=== PATIENT | female | born 1990 | race Caucasian/White ===

== ENCOUNTER 2019-09-19 09:52 | Inpatient (IN) | payer OTHER ==
[~2019-09-19] VITALS: Ht 162.6 cm; Wt 102.0 kg
--- NOTE | ~2019-09-19 | OR ---
[facility] [address], [place] [address] Draft DATE OF OPERATION: 09/24/2019 SURGEON: Tre El MD Patient of Dr. El. PREOPERATIVE DIAGNOSIS: Term , previous section. POSTOPERATIVE DIAGNOSIS: Term , previous section. PROCEDURE PERFORMED: Repeat low transverse segment section. Delivery of live female infant. MANAGER AUDIO: Simon carcamo DO. ANESTHESIA: Spinal. ESTIMATED BLOOD LOSS: 500 mL. COMPLICATIONS: None. DRAINS: Nolasco to bladder. FINDINGS: Live female infant, Apgars 8 and 9. Weight 8 pounds 9 ounces. Normal uterus, normal tubes and ovaries bilateral. DESCRIPTION OF PROCEDURE: The patient was brought to the operating room, placed in supine position. After adequate spinal anesthesia was obtained, was prepped and draped in usual sterile fashion. Nolasco catheter was placed in the bladder. A Pfannenstiel skin incision was made through previous surgical scar using the scalpel. Subcutaneous tissue was dissected with scalpel and Bovie. The fascia was nicked with scalpel, extended in PATIENT NAME: AAMIR LOMELI OPERATIVE REPORT DATE OF : [birth year] REPORT #: [id number] PHYSICIAN: TRE EL MD PCP: NO PRIMARY CARE PHYSICIAN REPORT IS CONFIDENTIAL AND NOT TO BE RELEASED WITHOUT AUTHORIZATION [facility] [address] [place] [id number] Draft transverse fashion using curved scissors. The underlying abdominal musculature was bluntly and sharply from the fascia above and below the incision. The abdominal musculature was bluntly along the midline. The peritoneum was opened with scissors and then incision extended manually. The Sergio self-retaining retractor was inserted into the incision and tightened in place. The lower uterine segment was identified and the lower uterine segment nicked with scalpel and extended in transverse fashion using finger dissection. Bulging bag of clear fluid came from the incision. This was opened with pickups with teeth. The was noted to be in vertex LOP presentation. The infant head was easily delivered from the incision. The rest of the was easily delivered from the incision and the cord doubly clamped and cut. The infant was passed off table in good condition to awaiting nurse. The placenta was manually removed and the uterine cavity explored with a lap pad to remove any retained membranes. An angle stitch of 0 Monocryl was placed at one end of incision and running locking stitch of 0 Monocryl was used to imbricate the 1st layer. There was small bleeding at the left angle. This was controlled with a vdvngt-ng-autbw stitch of 0 Monocryl. When good hemostasis was obtained, the entire pelvis was irrigated, suctioned, and examined, any superficial bleeding spots cauterized with the Bovie. Good hemostasis was obtained. The Sergio self-retaining retractor was removed and a sheet of ACell placed over the lower uterine segment to help with healing. The anterior wall of peritoneum was closed using a running stitch of 2-0 Vicryl suture. The abdominal musculature was reapproximated using interrupted stitches of 0 Vicryl suture. The abdominal wall was then irrigated, suctioned, and examined, any bleeding spots cauterized with the Bovie. Powdered ACell sprinkled over the abdominal musculature and then the fascia closed using two running stitches of 0 Vicryl suture meeting in the midline. The subcutaneous tissue was irrigated, suctioned, examined, any bleeding spots cauterized with the Bovie. Subcutaneous tissue was then closed using interrupted stitches of 3-0 Vicryl and skin reapproximated using skin clips. The patient tolerated the procedure well, went to recovery room in good condition. The sponge, needle, and instrument count correct at the end of the procedure. MD LOLI Garza/MODL /[id number] PATIENT NAME: AAMIR LOMELI OPERATIVE REPORT DATE OF : [birth year] REPORT #: [id number] PHYSICIAN: TRE EL MD PCP: NO PRIMARY CARE PHYSICIAN REPORT IS CONFIDENTIAL AND NOT TO BE RELEASED WITHOUT AUTHORIZATION [facility] [address] [place] [address] [place] [address] Draft Copies: ~ PATIENT NAME: AAMIR LOMELI OPERATIVE REPORT DATE OF : [birth year] REPORT #: [id number] PHYSICIAN: TRE EL MD PCP: NO PRIMARY CARE PHYSICIAN REPORT IS CONFIDENTIAL AND NOT TO BE RELEASED WITHOUT AUTHORIZATION
[~2019-09-19 09:52] MED LIST: BACTRIM DS TAB1 EACH PO; NAPROSYN500 MG PO; NEXPLANON68 MG SUB-Q
--- NOTE | 2019-09-24 13:18 | NUR ---
09/24/19 1318 [address] 1308 PATIENT ARRIVES TO [facility] 104 AWAKE. DENIES PAIN OR NAUSEA. RESP EVEN AND UNLABORED, ROOM AIR SATS >95%. MOTHER AND SO AT BEDSIDE. MOTHER HOLDING INFANT ON CHEST. 1315 PATIENT CONTINUES TO DENY PAIN OR NAUSEA. RESP EVEN AND UNLABORED, ROOM AIR SATS >95%.
--- NOTE | 2019-09-25 12:22 | PR ---
[facility] [address] [facility] [place], [place] [address] Signed PP Progress Notes Datetime Report Generated by CPN: 09/25/2019 12:22 SUBJECTIVE: [id number] Pain: Within normal limits Nausea/Vomiting: Denies Flatus: Yes Bowel Movement: No Vital Signs: [id number] Vital Signs: Reviewed; Within Normal Limits EXAM: [id number] Cardiovascular: Normal Respiratory: Normal Lochia: Normal Vulva/Perineum: Not Done CVA Tenderness: Normal Extremities: Normal Incision: Normal Progress: Normal Exam Comments: Fundus firm U -2 nontender. Incision healing well. IMPRESSION/PLAN/PROCEDURES: [id number] Impression: Normal progression Progress Notes: Pt seen and examined. Doing well. No concerns. Anticipate d/c home tomorrow. D/C cath and ambulate. Signing Physician: Sofi Crum DO Copies: ~ *Electronically Signed* 09/25/19 1222 SOFI CRUM DO PATIENT NAME: AAMIR LOMELI PROGRESS NOTE DATE OF : [birth year] PHYSICIAN: SOFI CRUM DO RPT #: [id number] REPORT IS CONFIDENTIAL AND NOT TO BE RELEASED WITHOUT AUTHORIZATION
--- NOTE | 2019-09-26 08:41 | PR ---
[facility] [address] [facility] [place], [place] [address] Signed PP Progress Notes Datetime Report Generated by CPN: 09/26/2019 08:41 SUBJECTIVE: [id number] Pain: Within normal limits Nausea/Vomiting: Denies Flatus: Yes Bowel Movement: No Vital Signs: [id number] Vital Signs: Reviewed; Within Normal Limits EXAM: [id number] Cardiovascular: Normal Respiratory: Normal Abdomen/Uterus: Normal Lochia: Normal Vulva/Perineum: Not Done CVA Tenderness: Normal Extremities: Normal Incision: Normal Progress: Normal Exam Comments: Fundus firm U-2 nontender. Incision w/ hipolito in place IMPRESSION/PLAN/PROCEDURES: [id number] Impression: Normal progression Plan: Discharge Progress Notes: Pt seen and examined. Doing well. Ambulating, voiding, and tolerating full diet. Pain and lochia minimal. w/ difficulties latching, but pumping without difficulty. Desires d/c home. Reviewed d/c instructions in detail. Pt to f/u for staple removal in office tomorrow. Signing Physician: Sofi Crum DO Copies: ~ *Electronically Signed* 09/26/19 0841 SOFI CRUM DO PATIENT NAME: AAMIR LOMELI PROGRESS NOTE DATE OF : [birth year] PHYSICIAN: SOFI CRUM DO RPT #: [id number] REPORT IS CONFIDENTIAL AND NOT TO BE RELEASED WITHOUT AUTHORIZATION
== END 2019-09-26 12:10 | disposition home or self-care (01) | DRG 788 ==
LOC: FBC 09-24 09:49
PROVIDERS: ADMIT General Practice
PROC: 10D00Z1 Extraction of Products of Conception, Low, Open Approach (ICD-10-PCS; principal; 2019-09-24 12:00)
DX: O34.211 Maternal care for low transverse scar from previous cesarean delivery (principal); N85.8 Other specified noninflammatory disorders of uterus; O24.429 Gestational diabetes mellitus in childbirth, unspecified control; Z3A.39 39 weeks gestation of pregnancy; Z37.0 Single live birth
CPT/HCPCS: 01961; 36415; 85027; A9270; J0131; J0690; J1644; J1885; J2274; J2405; J2590; J2765; J7121

== ENCOUNTER 2019-10-11 20:41 | Inpatient (IN) | payer OTHER ==
[~2019-10-11] VITALS: Ht 162.6 cm; Wt 91.2 kg
--- OUTSIDE RECORDS SUMMARY | 2019-10-11 20:44 | XMS ---
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 EDao VISIT COUNT (12 MO.) 1 ANNABEL Jett TOTAL 1 NOTE: Visits indicate total known visits. ED/UCC VISIT TRACKING (12 MO.) 10/11/2019 20:42 ANNABEL Lombardi OR TYPE: Emergency COMPLAINT: - ABD PAIN INPATIENT VISIT TRACKING (12 MO.) 09/24/2019 09:49 ANNABEL Lombardi OR TYPE: [facility] COMPLAINT: - REPEAT C SECTION DIAGNOSES: - Gestational diabetes mellitus in childbirth, unsp control - Other specified noninflammatory disorders of uterus - Other specified noninflammatory disorders of uterus - Single live - Matern care for low transverse scar from prev del - Maternal care for unsp type scar from previous del - 39 weeks gestation of [email or web address]
[2019-10-11] MEDS ORDERED: IBUPROFEN800 MG PO (23:31)
--- NOTE | 2019-10-13 11:29 | HP ---
[facility] [address] [place], [place] [address] Signed ADMISSION DATE: 10/11/2019 REASON FOR ADMISSION: Perforated appendicitis with abscess, 2-1/2 weeks. HISTORY: This 29-year-old white woman delivered by , her 2nd child 2-1/[address] El[address] She has had about eight days of increasing right pelvic pain. She was thought likely to have symptoms related to her recent . Notably, she had a hematoma of the lateral aspect of the incision on the right side, for which, wound packing was undertaken. The wound has been healing well. She had increasing pain for the past eight days or so. She was seen by Dr. El a day prior to the emergency room evaluation. A plan for a CT scan was organized for the coming week if she was not better, but she had a temperature to 101 three nights prior to admission, but pain increasing to a level of 8/10 with ambulation and on that basis, presented to the emergency room. She was thoroughly evaluated by Dr. El who noted her to have elevated white count of 13.5, and a CT scan was performed, which shows an abscess in relation to the appendix and presumably a perforated appendicitis with abscess. The CT scan that was performed does show some endometrial enhancement, some fluid within uterine cavity, grossly homogeneous. No abnormality otherwise. There is a trace subcutaneous soft tissue air in the lateral margin of the , but wound packing noted as well. The patient was admitted under my service with directions for meropenem, broad-spectrum antibiotic administration. She has had no fever or chills since admission. No nausea or vomiting. She has urinated and appears likely to be well hydrated. PAST MEDICAL HISTORY: Primarily remarkable for childbirth x2, both by . Her recent was planned. She has not smoked, does not use alcohol and takes no drugs. She has home medication of ibuprofen. Previously a control method, Nexplanon 68 mg subcutaneous daily, which has been discontinued. Her beta-hCG currently is negative. REVIEW OF SYSTEMS: She denies any shortness of breath or chest pain. She has had no leg swelling. No shortness of breath. Her pain is in the right lower abdomen. She notes her incision to be healing well. She has been using gauze packing to the lateral aspect of it. PHYSICAL EXAMINATION: Electronically Signed By: NAZANIN MCDONOUGH MD 10/13/19 1129 PATIENT NAME: AAMIR LOMELI HISTORY AND PHYSICAL DATE OF : [birth year] REPORT #: [id number] PHYSICIAN: NAZANIN MCDONOUGH MD PCP: NO PRIMARY CARE PHYSICIAN REPORT IS CONFIDENTIAL AND NOT TO BE RELEASED WITHOUT AUTHORIZATION [facility] [address] [place], [place] [address] Signed GENERAL: She is alert and oriented and nontoxic in appearance. HEENT: Mucous membranes are moist. NECK: Trachea is midline. CHEST: Clear. HEART: Regular without murmur. ABDOMEN: Obese, but soft. There is tenderness in the right lower abdomen. The mid low transverse incision is healing well. There is some gauze packing and a small defect in the lateral aspect on the right side. EXTREMITIES: Show no clubbing, cyanosis, or edema. Sequential compression device stockings are in place. LABORATORY DATA: Her CBC shows white count of 13.3, platelets 342,000, hematocrit 38. Electrolytes are normal. Creatinine 0.73. Urinalysis by clean catch was abnormal with elevated white cells, but 2nd urinalysis normal. Liver enzymes are normal. I reviewed her CT scan in detail, also the report from radiologist. ASSESSMENT: The patient has an abscess in the right lower quadrant in relation to her appendix and what appears to be a fecalith as well. She almost certainly has perforated appendicitis with abscess. Her symptoms have been about one week in duration and this is not too surprising. Discussed with her the pathophysiology of appendicitis and its relationship to perforation with abscess formation. Drainage of the abscess is certainly appropriate and if possible, appendectomy concurrently. There are occasions where due to distortion of anatomy and so forth, that only the abscess can be drained and delayed appendectomy would be recommended. A laparoscopic approach may be possible, though she may ultimately require an open procedure given the extent of inflammation that I see on the study. If possible drainage of the abscess, complete appendectomy and of course, removal of fecalith would be optimal. She will require drain to be in place either way. She understands this. Her is not present now. She is with their other children, but plans to return prior to the schedule of operation today. Meropenem antibiotic has been initiated and will be maintained. She has received Pepcid, IV Tylenol, and IV Toradol. Nazanin Mcdonough MD Electronically Signed By: NAZANIN MCDONOUGH MD 10/13/19 1129 PATIENT NAME: AAMIR LOMELI HISTORY AND PHYSICAL DATE OF : [birth year] REPORT #: [id number] PHYSICIAN: NAZANIN MCDONOUGH MD PCP: NO PRIMARY CARE PHYSICIAN REPORT IS CONFIDENTIAL AND NOT TO BE RELEASED WITHOUT AUTHORIZATION [facility] [address] [place] [address] Signed /EAMON /[id number] cc: MD Guera Garza MD Copies: LEANDER EL MD, KELLY DEAN MD ~ Electronically Signed By: NAZANIN MCDONOUGH MD 10/13/19 1129 PATIENT NAME: AAMIR LOMELI HISTORY AND PHYSICAL DATE OF : [birth year] REPORT #: [id number] PHYSICIAN: NAZANIN MCDONOUGH MD PCP: NO PRIMARY CARE PHYSICIAN REPORT IS CONFIDENTIAL AND NOT TO BE RELEASED WITHOUT AUTHORIZATION
--- NOTE | 2019-10-13 11:29 | OR ---
[facility] [address] [place], [place] [address] Signed DATE OF OPERATION: 10/11/2019 SURGEON: Nazanin Mcdonough MD PREOPERATIVE DIAGNOSES: 1. A 6 cm intraabdominal abscess, right lower quadrant, probable perforated appendicitis. 2. Eju-zrq-e-half weeks with section and right lateral wound local wound care for postoperative hematoma. POSTOPERATIVE DIAGNOSES: 1. Intraabdominal abscess. 2. Perforated appendicitis with free fecalith and fragmented appendiceal remnants. 3. Healing by secondary intention, right lateral section wound. PROCEDURES: 1. Laparoscopy. 2. Laparoscopic drainage of intraabdominal abscess and placement of drain 3. Breakdown of loculations and freeing of small bowel from abscess cavity 4. Retrieval of fecalith with debridement of appendiceal fragment ANESTHESIA: General endotracheal; Giovani Linda, REHEAT FURNACE OPERATOR, and local 20 mL of 0.25% Marcaine with epinephrine. INDICATION: This 29-year-old white woman is mod-lku-x-half weeks from her 2nd child born by section. She is a patient of Dr. El. For the past eight days, she has had increasing right abdominal pain. She was noted to have a small hematoma of the incision laterally and has undergone wound packing for that. She has had a temperature as high as 100.7 two days ago. She had unrelenting pain and presented to the emergency room where she was evaluated by Dr. Feldman and underwent CT scan of the abdomen, which showed somewhat boggy uterus, but more importantly a well-formed abscess in the right lower quadrant. My inspection shows multiple small bowel loops tangled up into this process as well as what appears to be a radiopaque fecalith that is free-floating. The abscess is clearly large and present and likely related to perforated appendicitis. She has been given intravenous antibiotic meropenem, fluid resuscitated and is now to undergo laparoscopy with laparoscopic drainage and/or possible open procedure depending on requirements. She may require and be only able to have drainage without appendectomy. She understands this as well. Her significant Electronically Signed By: NAZANIN MCDONOUGH MD 10/13/19 1129 PATIENT NAME: AAMIR LOMELI OPERATIVE REPORT DATE OF : [birth year] REPORT #: [id number] PHYSICIAN: NAZANIN MCDONOUGH MD PCP: NO PRIMARY CARE PHYSICIAN REPORT IS CONFIDENTIAL AND NOT TO BE RELEASED WITHOUT AUTHORIZATION [facility] [address] [place] [address] Signed other boyfriend is not locally available to discuss this with, but I did speak with her sister on the phone, Ms. Rocha, who is her point of contact. All parties agreed to proceed as I have discussed. FINDINGS: After satisfactory anesthesia, palpation of the abdomen did reveal a firm mass in the right lower quadrant consistent with abscess and inflammatory process. The incision from showed near total healing with some Nu Gauze in the corner of the incision subsequently found to track deeply a bit, but without sign of purulence in the incision itself. At operation, a firm mass was formed behind the cecum, for which, freeing of the cecum laterally allowed for egress of free-flowing purulent material. This was suctioned free entirely. Appendix itself was multiply fragmented and a free fecalith was identified and retrieved. The right uterine horn including the round ligament and right salpinx was identified as was the ovary. They were all normal. Debridement of the appendiceal fragments was able to be undertaken and irrigation of the space completely. Certainly, the appendiceal orifice in conjunction with the cecum was not identified. There is no sign of actual fecal leakage from the cecum itself, though she has increased risk for that obviously. Short of cecectomy, which could be undertaken, complete drainage of the abscess was accomplished as well as placement of a drain and debridement of appendiceal remnants including the tip of the appendix. The gallbladder appeared normal as did the liver. The terminal ileum was entirely normal. Interloop adhesions and well-formed abscess cavity between bowel loops were freed up as well. DESCRIPTION OF PROCEDURE: The patient was brought to the operating room, given a general endotracheal anesthetic. Preoperative antibiotic meropenem had been given. Sequential compression device stockings used and heparin subcutaneously administered. A Nolasco catheter was placed. The abdomen was prepared with a chlorhexidine solution after withdrawal of the Nu Gauze from the lateral aspect on the right side of the incision. So as to avoid contamination of a noninfected wound, a small OpSite was placed over the incision after preparation was undertaken with a chlorhexidine solution. Palpation of the abdominal wall revealed a palpable mass, the size of a softball, in the right lower quadrant. After sterile draping, an infraumbilical incision was made and using an open Anson cannula technique, the abdomen entered and inspection undertaken after pneumoperitoneum achieved to a level of 14 mmHg of carbon dioxide gas. There was no sign of free-flowing fluid particularly. The gallbladder and liver appeared normal. There was a dense mass in conjunction with the cecum. The uterus, which was still somewhat enlarged, was mildly adhesed to the anterior abdominal wall and omental adhesions were noted as well. Electronically Signed By: NAZANIN MCDONOUGH MD 10/13/19 1129 PATIENT NAME: AAMIR LOMELI OPERATIVE REPORT DATE OF : [birth year] REPORT #: [id number] PHYSICIAN: NAZANIN MCDONOUGH MD PCP: NO PRIMARY CARE PHYSICIAN REPORT IS CONFIDENTIAL AND NOT TO BE RELEASED WITHOUT AUTHORIZATION [facility] [address] [place], [place] [address] Signed With the laparoscope itself, those adhesions were gently freed up. Interrogation in the lateral aspect of the cecum with the laparoscope allowed for egress of copious amounts of free-flowing purulence. Prompt placement of a 10 mm epigastric port was undertaken and camera replaced to that site and a suction device used to suck up the purulence in drainage of the abscess. A Luki tube was used to collect a specimen for Gram stain and cultures. The right lower quadrant incision was made to accommodate a 5 mm trocar and two-hand manipulation in the cecal area undertaken. Interloop adhesions of bowel were freed up, identifying well the terminal ileum, which was entirely normal as evidenced by in its location by the antimesenteric fat pad of Treves. With gentle manipulation of the cecum, more purulent material could be withdrawn. There appeared to be a free-floating fecalith just over the pelvic rim. This was grasped with the appropriate instrument and withdrawn completely. Further irrigation and debridement in the retrocecal area showed the well-formed abscess cavity, but did not clearly show the appendix initially. The right horn of the uterus was identified including the round ligament and the right salpinx. These areas were free. Pelvic fluid was suctioned free. With further manipulation, the remnants of the disrupted appendix could be identified including the tip of it, which was gently debrided from the retroperitoneum. Other fragments of fatty tissue and so forth were barely recognizable. Excessive aggressive debridement in the retroperitoneum was considered and advisable considering the position of the ureter, the iliac great vessels, and so on. Debridement of necrotic appendiceal tissue was undertaken to the degree it could be and irrigation undertaken until completely clear. There was no sign of fecal leak from the cecum, though admittedly, the base of the appendix in relation to the cecum was not secured in any way. It was probably already scarred over at this point. Through the right lower quadrant, a 7 mm flat Tobin drain was insinuated into the abscess cavity area and draped across the pelvic brim. This secured the skin with nylon suture. Excess irrigation fluid was suctioned free after 2 L of antibiotic containing saline solution administered. Special care was taken for suctioning over the liver and right pericolic gutter. These areas remained clear. The trocars were removed under direct visualization showing no sign of bleeding. The infraumbilical fascial incision reapproximated with interrupted 0 Vicryl suture. All wounds copiously irrigated with saline solution and skin closed with interrupted 3-0 Vicryl. Steri-Strips were applied. An OpSite was used to additionally secure the drain itself. Examination was undertaken of the wound. Probing of the lateral aspect showed it to go 2 inches deep into the subcutaneous space, but there was no undrained purulence there. This wound was then packed with some iodoform gauze and a separate dressing applied. The patient was ultimately extubated and transferred to Recovery in good condition having suffered no complications. Sponge, needle, and instruments counts reported as correct x3. Electronically Signed By: NAZANIN MCDONOUGH MD 10/13/19 1129 PATIENT NAME: AAMIR LOMELI OPERATIVE REPORT DATE OF : [birth year] REPORT #: [id number] PHYSICIAN: NAZANIN MCDONOUGH MD PCP: NO PRIMARY CARE PHYSICIAN REPORT IS CONFIDENTIAL AND NOT TO BE RELEASED WITHOUT AUTHORIZATION [address] [address] Signed MD KENA Dumont/MODL /[id number] cc: MD Tre Houser MD Copies: FRANK FELDMAN MD, MICHAEL JOHN MD ~ Electronically Signed By: NAZANIN MCDONOUGH MD 10/13/19 1129 PATIENT NAME: AAMIR LOMELI OPERATIVE REPORT DATE OF : [birth year] REPORT #: [id number] PHYSICIAN: NAZANIN MCDONOUGH MD PCP: NO PRIMARY CARE PHYSICIAN REPORT IS CONFIDENTIAL AND NOT TO BE RELEASED WITHOUT AUTHORIZATION
[2019-10-16] MEDS ORDERED: CIPROFLOXACIN500 MG PO (10:21)
[2019-10-16] MEDS ORDERED: METRONIDAZOLE250 MG PO (10:21)
[2019-10-16] MEDS ORDERED: TYLENOL EXTRA500 MG PO (10:22)
[2019-10-16] MEDS ORDERED: IBUPROFEN600 MG PO (10:22)
--- NOTE | 2019-10-16 10:47 | PATH ---
[facility] [address] [place], [place] [address] Signed SPECIMEN(S): A APPENDIX AND FECALITH SPECIMEN SOURCE: A. APPENDIX AND FECALITH CLINICAL HISTORY: Pre: RLQ pain, abscess, dx laparoscopy, possible appendectomy. Post: Drainage of intra-abdominal abscess, debridement of appendix. FINAL PATHOLOGIC DIAGNOSIS: Appendix, appendectomy: - Acute appendicitis with acute serositis and periappendiceal abscess formation. - Fecalith - Probable perforation (clinical correlation required). SHAHEEDA:emb:C2NR MICROSCOPIC EXAMINATION: Histologic sections of all submitted blocks are examined by light microscopy. These findings, together with the gross examination, support the pathologic diagnosis. GROSS DESCRIPTION: The specimen, labeled "KA, fecalith and portion of appendix," is received in formalin and consists of Specimen: Fecalith with fragmented appendix. Dimensions: 4.4 cm in length by 1.0 cm in diameter. Serosa: Dark brown and roughened. Perforation: The specimen is fragmented and a perforation cannot be determined. Inking: The specimen is not inked because fragmentation makes margin unidentifiable. Mucosa: Ralph-brown and roughened. Fecalith: Includes a 1.0 x 0.8 x 0.7 cm dark brown granular nodule. Additional: None. Bow Rehairer sections are submitted in cassette (A1). AM (under the direct supervision of a pathologist) After initial examination of the HE slides Dr. Hu has requested additional sections of the appendix. (A2-A3) Remainder of the specimen. AM The Gross Description was prepared using a voice recognition system. The PATIENT NAME: AAMIR HU PATHOLOGY DATE OF : [birth year] REPORT #: [id number] PHYSICIAN: HELEN LOPEZ PCP: NO PRIMARY CARE PHYSICIAN REPORT IS CONFIDENTIAL AND NOT TO BE RELEASED WITHOUT AUTHORIZATION [facility] [address] [address] Signed report was reviewed for accuracy; however, sound-alike word errors, addition and/or deletions may occur. If there is any question about this report, please contact Client Services. PERFORMING LABORATORY: The technical component [place] [address] (Supervisor Public Message Service: Talisha Ramirez MD; CLIA# [id number]). Professional interpretation was performed by [facility], [address] [address] (Supervisor Public Message Service: Prabhu Hu MD; CLIA# [id number]). Diagnostician: Prabhu Hu MD Pathologist Electronically Signed 10/16/2019 Copies: ~ PATIENT NAME: AAMIR HU PATHOLOGY DATE OF : [birth year] REPORT #: [id number] PHYSICIAN: HELEN LOPEZ PCP: NO PRIMARY CARE PHYSICIAN REPORT IS CONFIDENTIAL AND NOT TO BE RELEASED WITHOUT AUTHORIZATION
--- NOTE | 2019-10-16 10:54 | OR ---
[facility] [address], [place] [address] Signed DATE OF OPERATION: 10/15/2019 SURGEON: Nazanin Mcdonough MD PREOPERATIVE DIAGNOSES: 1. Acute calculous cholecystitis. 2. Recent laparoscopic drainage of right lower abdominal abscess secondary to perforated appendicitis with concurrent appendiceal debridement and extraction of appendicolith. 3. 2-1/2 weeks status post section for 2nd child. POSTOPERATIVE DIAGNOSES: 1. Acute calculous cholecystitis. 2. Recent laparoscopic drainage of right lower abdominal abscess secondary to perforated appendicitis with concurrent appendiceal debridement and extraction of appendicolith. 3. 2-1/2 weeks status post section for 2nd child. PROCEDURES PERFORMED: 1. Laparoscopic cholecystectomy with intraoperative cholangiogram. 2. Surgeon-directed fluoroscopy. ANESTHESIA: General endotracheal; Nazanin Canales CRNA, and local 20 mL of 0.25% Marcaine with epinephrine. INDICATIONS: This 29-year-old white woman is nearly 3 weeks from for 2nd child. This was by Dr. El. A day or two after her delivery, she began having right lower abdominal pain culminating ultimately a finding on CT scan of an abscess consistent with perforated appendicitis. On October 11, 2019, she underwent laparoscopy with laparoscopic drainage of the abscess as well as extraction of a fecalith that was found and debridement by morcellation technique of residual necrotic appendix and placement of drain. She had marked improvement of her problem immediately postoperatively and was progressing and had solid food diet. She then began having rather severe subcostal pain on the right side, primarily with movement or straining. This has worsened over time. Yesterday gallbladder ultrasound was performed, which showed contracted gallbladder with multiple stones. She shows no sign of intrahepatic ductal dilatation. Amylase and lipase are normal. Despite the uncommon finding, she clearly is recommended to undergo cholecystectomy preferred by laparoscopic approach. The risks of bleeding, infection, bile duct injury, Electronically Signed By: NAZANIN MCDONOUGH MD 10/16/19 1054 PATIENT NAME: AAMIR LOMELI OPERATIVE REPORT DATE OF : [birth year] REPORT #: [id number] PHYSICIAN: NAZANIN MCDONOUGH MD PCP: NO PRIMARY CARE PHYSICIAN REPORT IS CONFIDENTIAL AND NOT TO BE RELEASED WITHOUT AUTHORIZATION [facility] [address], [place] [address] Signed need for open procedure, and most importantly failure to cure her current symptoms were all reviewed with her, she understands, wished to proceed. FINDINGS: The right lower abdomen had omental adhesions around the drain and the cecum itself was not visualized. There appeared to be no sign of generalized peritonitis or purulent fluid. The liver was normal. Gallbladder was impressively decompressed around residual gallstones. The gallbladder once excised showed chronic and subacute inflammatory change in the mucosa of the gallbladder and multiple small yellow mulberry gallstones. Intraoperative cholangiogram was normal. The liver was otherwise normal also. DESCRIPTION OF PROCEDURE: The patient was brought to the operating room, given a general endotracheal anesthetic. Preop antibiotics had been given. Sequential compression device stockings used and heparin subcutaneously administered. Steri-Strips from prior incisions were removed and a lower abdominal dressing over the site and area of exit wound for right lower quadrant Tobin drain was also removed. The abdomen was prepared with a chlorhexidine solution and an OpSite was placed over the incision as well as the origin of the drain site in the right lower quadrant. Rather than using the infraumbilical fascial incision, a supraumbilical incision was made and using an open Anson cannula technique, pneumoperitoneum was achieved to a level of 14 mmHg of carbon dioxide gas. Intraabdominal inspection showed no sign of ascites or carcinomatosis. There was no sign of generalized peritonitis. Evaluation of the right lower abdomen showed omental adhesions around the drain entry into the right lower quadrant. Three additional trocars were placed in usual configuration in the subxiphoid, right midclavicular, and right anterior axillary line. The liver was somewhat bulky, but was elevated and the gallbladder was found to be imressively contracted and chronically inflamed. It was distinctly different than what had been seen at the time of her laparoscopic appendectomy 2 days previously, that is for sure. The gallbladder was elevated cephalad and retracted laterally and using meticulous dissection, the triangle of calot dissected free identifying well cystic arterial branches and the cystic duct itself. The cystic duct was relatively small. Clips were applied across the cystic artery and transected and a clip was applied across the cystic duct-gallbladder junction. A transverse choledochotomy was made in the cystic duct. Egress of thick but clear bile was noted. Using an Post type cholangiocatheter, intraoperative cholangiography was undertaken showing free flow of contrast into the biliary Electronically Signed By: NAZANIN MCDONOUGH MD 10/16/19 1054 PATIENT NAME: AAMIR LOMELI OPERATIVE REPORT DATE OF : [birth year] REPORT #: [id number] PHYSICIAN: NAZANIN MCDONOUGH MD PCP: NO PRIMARY CARE PHYSICIAN REPORT IS CONFIDENTIAL AND NOT TO BE RELEASED WITHOUT AUTHORIZATION [address] [address] Signed tree with prompt emptying into the duodenum. An incidental pancreatogram was noted. There was no sign of abnormality. Catheter was removed and the cystic duct was triply clipped and divided and gallbladder dissected free in a retrograde fashion using electrocautery. Gallbladder was extracted after putting it into an endobag since a small rent in the gallbladder had allowed for egress of some tenacious bilious fluid. That fluid was suctioned free. The gallbladder was extracted through the supraumbilical port site, opened on the back table and found to have sludge as well as small, less than 1 cm mulberry-shaped yellow gallstones and chronic and subacute inflammatory change of the mucosa. Irrigation was undertaken with subhepatic space. There was no sign of bile leak, bleeding, or other problems. The trocars were removed under direct visualization showing no sign of bleeding. The supraumbilical fascial incision was reapproximated with interrupted 0 Vicryl suture as well as a running 0 PDS suture. 20 mL of 0.25% Marcaine with epinephrine injected locally. The skin was then closed with interrupted 3-0 Vicryl. Steri-Strips were applied. The patient was ultimately extubated and transferred to recovery in good condition having suffered no complications. Sponge, needle, and instrument counts reported as correct x3. MD KENA Dumont/NICHOLE /[id number] cc: Tre El MD Copies: TRE EL MD ~ Electronically Signed By: NAZANIN MCDONOUGH MD 10/16/19 1054 PATIENT NAME: AAMIR LOMELI OPERATIVE REPORT DATE OF : [birth year] REPORT #: [id number] PHYSICIAN: NAZANIN MCDONOUGH MD PCP: NO PRIMARY CARE PHYSICIAN REPORT IS CONFIDENTIAL AND NOT TO BE RELEASED WITHOUT AUTHORIZATION
--- NOTE | 2019-10-17 12:55 | DS ---
[facility] [address] [place], [place] [address] Signed ADMISSION DATE: 10/11/2019 DISCHARGE DATE: 10/16/2019 REASON FOR ADMISSION: This 29-year-old white woman was delivered by of her 2nd child 2-1/2 weeks prior to current admission by Dr. El. She has had 8 days of increasing right abdominal pain. Her symptoms were initially thought related to a recent incision with a right lateral small subcutaneous hematoma which was drained. Her symptoms worsened enough and she was noted to have a temperature of 101 three nights prior to current admission that she presented to the emergency room. Emergency room evaluation showed her to have a large abscess in the right lower quadrant highly consistent with perforated appendicitis. Indeed a fecalith was visualized in the morass of inflammatory process in the right lower abdomen. She is admitted for further evaluation and care. PERTINENT PHYSICAL EXAM: GENERAL: Alert and oriented, nontoxic white woman with very erythematous cheeks. HEENT: Mucous membranes were moist. Trachea midline. CHEST: Clear. HEART: Regular without murmur. ABDOMEN: Obese, but soft. There is tenderness in the right lower abdomen. A low transverse Pfannenstiel type incision is noted and healing well. There is some gauze packing in the right lateral aspect. LABORATORY DATA: Her white count was 13.3, platelets 342,000, hematocrit 38. Electrolytes were normal. Creatinine 0.73. Initial urinalysis abnormal. Followup urinalysis normal. CT scan showed a complex fluid collection with air-fluid level in the right lower abdomen consistent with intraabdominal abscess and probable perforated appendicitis and a free-floating fecalith based on clinical appearance. HOSPITAL COURSE: She was admitted, given fluid resuscitation and broad-spectrum antibiotic meropenem. On October 12, 2019, she underwent laparoscopy. She was found to have a sizable pericecal abscess approximately 6 cm in size for which laparoscopic drainage was undertaken. Further examination showed a normal terminal ileum, the uterus and right adnexal structures secondarily inflamed. The appendix was in multiple pieces with extensive inflammatory rind. A free fecalith was identified and retrieved. Irrigation was undertaken and a drain placed through a right lower quadrant incision. Cultures of the abscess ultimately showed E coli, which was pansensitive though resistant to ampicillin. Electronically Signed By: NAZANIN MCDONOUGH MD 10/17/19 1255 PATIENT NAME: AAMIR LOMELI DISCHARGE SUMMARY DATE OF : [birth year] REPORT #: [id number] PHYSICIAN: NAZANIN MCDONOUGH MD PCP: NO PRIMARY CARE PHYSICIAN REPORT IS CONFIDENTIAL AND NOT TO BE RELEASED WITHOUT AUTHORIZATION [facility] [address] [place], [place] [address] Signed She had prompt and remarkable improvement of her symptoms of right lower abdominal pain. The drain began to clear rather promptly. The drain was left in place in large part as there was no assured security to the appendiceal stump. Indeed, its identification was actually uncertain, though I suspect it had fibrosed and sealed at that point. She showed no development of fecal fistula. The following day, she began having right subcostal pain mostly with ambulation and movement. Given her obesity, her having had two children, and some question of family history of biliary disease, a gallbladder ultrasound was performed. This did confirm gallstones with a contracted gallbladder around the stones. Her liver enzymes were normal. Her symptoms worsened and it was quite clear that she did have acute calculous cholecystitis. On October 15, 2019, she underwent laparoscopic cholecystectomy with intraoperative cholangiogram. Most notable was a chronically and subacutely inflamed gallbladder that was completely decompressed around the gallstones. This was in distinction to her finding at initial operation, where the gallbladder appeared reasonably normal. Cholangiogram was normal. The following day she was noted to have complete freedom of her right upper abdominal pain, tolerating oral intake and having no problems. Her drain at the time of discharge is relatively clear and will remain in place considering the findings of her perforated appendicitis with abscess. She is discharged to home in good and improved condition. DISCHARGE MEDICATIONS: Include: 1. Cipro 500 mg one tablet p.o. b.i.d., #8. 2. Flagyl 250 mg t.i.d. #12. 3. Ibuprofen 600 mg p.o. q.6 hours p.r.n. pain, #20. 4. Tylenol Extra Strength two tablets p.o. q.6 hours as needed for pain, #30. FOLLOWUP PLAN: She is to return to see me in the office in about 2 weeks at which point the drain will be removed so long as there is no evidence of fecal fistula. She is encouraged to shower on a daily basis. She should lift no more than 20 pounds for the next 2 weeks. DISCHARGE DIAGNOSES: 1. Intraabdominal abscess secondary to perforated appendicitis. 2. Status post laparoscopic drainage of intraabdominal abscess, concurrent appendiceal debridement and placement of drain, and retrieval and extraction of fecalith. Electronically Signed By: NAZANIN MCDONOUGH MD 10/17/19 1255 PATIENT NAME: AAMIR LOMELI DISCHARGE SUMMARY DATE OF : [birth year] REPORT #: [id number] PHYSICIAN: NAZANIN MCDONOUGH MD PCP: NO PRIMARY CARE PHYSICIAN REPORT IS CONFIDENTIAL AND NOT TO BE RELEASED WITHOUT AUTHORIZATION [facility] [address] [place] [address] Signed 3. 2-1/2 weeks with and right lateral incision and hematoma (small). 4. Postoperative acute calculous cholecystitis, status post laparoscopic cholecystectomy with intraoperative cholangiogram on October 15, 2019. 5. Obesity. MD KENA Dumont/EAMONL /[id number] cc: MD Guera Garza MD Copies: LEANDER EL MD, KELLY DEAN MD ~ Electronically Signed By: NAZANIN MCDONOUGH MD 10/17/19 1255 PATIENT NAME: AAMIR LOMELI DISCHARGE SUMMARY DATE OF : [birth year] REPORT #: [id number] PHYSICIAN: NAZANIN MCDONOUGH MD PCP: NO PRIMARY CARE PHYSICIAN REPORT IS CONFIDENTIAL AND NOT TO BE RELEASED WITHOUT AUTHORIZATION
--- NOTE | 2019-10-18 15:22 | PATH ---
[facility] [address] [place], [place] [address] Signed SPECIMEN(S): A GALLBLADDER AND STONES SPECIMEN SOURCE: A. GALLBLADDER AND STONES CLINICAL HISTORY: Pre: Cholelithiasis. Post: Lap kuldip. FINAL PATHOLOGIC DIAGNOSIS: Gallbladder, cholecystectomy: - Mild chronic cholecystitis. - Cholelithiasis. - Cholesterolosis. LJA:cml:C2NR MICROSCOPIC EXAMINATION: Histologic sections of all submitted blocks are examined by light microscopy. These findings, together with the gross examination, support the pathologic diagnosis. GROSS DESCRIPTION: The specimen, labeled "KA," and designated on the requisition "gallbladder and stones," is received in formalin and consists of Specimen: Previously opened gallbladder. Dimensions: 7.4 x 3.7 x 0.6 cm. Serosa: [place]-torres and smooth. Cystic Duct: Probe patent and inked. Calculi: Multiple yellow-brown, multilobulated stones, aggregate measurement of 2.0 x 1.8 x 0.6 cm. Mucosa: Green and velvety with yellow flecking. Wall thickness: 0.4 cm. Lymph node: No pericystic lymph nodes are grossly identified. Additional: None. Film Librarian sections are submitted in cassette (A1). FB (under the direct supervision of a pathologist) The Gross Description was prepared using a voice recognition system. The report was reviewed for accuracy; however, sound-alike word errors, addition and/or deletions may occur. If there is any question about this report, please contact Client Services. PERFORMING LABORATORY: PATIENT NAME: AAMIR HU PATHOLOGY DATE OF : [birth year] REPORT #: [id number] PHYSICIAN: HELEN LOPEZ PCP: NO PRIMARY CARE PHYSICIAN REPORT IS CONFIDENTIAL AND NOT TO BE RELEASED WITHOUT AUTHORIZATION [facility] [address] [address] Signed The technical component was performed by [place] [address] (Repairer Controller Tester: Talisha Ramirez MD; CLIA# [id number]).Professional interpretation was performed by [facility], [address] [address] (Repairer Controller Tester: Prabhu Hu MD; CLIA# [id number]). Diagnostician: Prabhu Hu MD Pathologist Electronically Signed 10/18/2019 Copies: ~ PATIENT NAME: AAMIR HU PATHOLOGY DATE OF : [birth year] REPORT #: [id number] PHYSICIAN: HELEN LOPEZ PCP: NO PRIMARY CARE PHYSICIAN REPORT IS CONFIDENTIAL AND NOT TO BE RELEASED WITHOUT AUTHORIZATION
== END 2019-10-16 11:30 | disposition home or self-care (01) | DRG 769 ==
LOC: ED 20:41 → MS 22:47
PROVIDERS: ADMIT Surgery
PROC: 0W9G40Z Drainage of Peritoneal Cavity with Drainage Device, Percutaneous Endoscopic Approach (ICD-10-PCS; principal; 2019-10-11)
PROC: 0DBJ4ZZ Excision of Appendix, Percutaneous Endoscopic Approach (ICD-10-PCS; 2019-10-11)
PROC: 0FT44ZZ Resection of Gallbladder, Percutaneous Endoscopic Approach (ICD-10-PCS; 2019-10-15)
PROC: BF101ZZ Fluoroscopy of Bile Ducts using Low Osmolar Contrast (ICD-10-PCS; 2019-10-15)
DX: O99.63 Diseases of the digestive system complicating the puerperium (principal); K35.33 Acute appendicitis with perforation, localized peritonitis, and gangrene, with abscess; K80.12 Calculus of gallbladder with acute and chronic cholecystitis without obstruction; K38.1 Appendicular concretions; B96.20 Unspecified Escherichia coli [E. coli] as the cause of diseases classified elsewhere; O99.215 Obesity complicating the puerperium; E66.9 Obesity, unspecified
CPT/HCPCS: 00790; 00840; 36415; 74177; 74300; 76705; 80053; 81001; 82150; 83690; 83735; 84703; 85025; 99285-25; A9270; J0131; J0330; J0690; J1100; J1644; J1885; J2185; J2250; J2405; J2704; J2765; J3010; J3480; J7030; J7121; Q9967

== ENCOUNTER 2020-02-11 13:48 | Emergency (ER) | payer SELFPAY ==
[~2020-02-11] VITALS: Ht 162.6 cm; Wt 81.7 kg
[~2020-02-11 13:48] MED LIST changes: +CIPROFLOXACIN500 MG PO; +IBUPROFEN600 MG PO; +IBUPROFEN800 MG PO; +METRONIDAZOLE250 MG PO; +TYLENOL EXTRA500 MG PO
--- OUTSIDE RECORDS SUMMARY | 2020-02-11 13:52 | XMS ---
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 Jair VISIT COUNT (12 MO.) 2 ANNABEL Jett TOTAL 2 NOTE: Visits indicate total known visits. ED/UCC VISIT TRACKING (12 MO.) 02/11/2020 13:49 [facility] [place] TYPE: Emergency COMPLAINT: - COLD SYMPTOMS 10/11/2019 20:42 [facility] [place] TYPE: Emergency COMPLAINT: - ABD PAIN INPATIENT VISIT TRACKING (12 MO.) 10/11/2019 22:47 [facility] [place] TYPE: [facility] COMPLAINT: - PERF APPY DIAGNOSES: - Calculus of gallbladder with acute and chronic cholecystitis - Acute appendicitis with perf and loc peritonitis, with abscs - Diseases of the digestive system complicating the puerperium - Obesity complicating the puerperium - Obesity, unspecified - Calculus of gallbladder with acute and chronic cholecystitis - Unspecified Escherichia coli [E. coli] as the cause of diseas - Obesity complicating the puerperium - Appendicular concretions - Acute appendicitis with perf and loc peritonitis, w/o abscs - Acute appendicitis with perf and loc peritonitis, with abscs - Unspecified Escherichia coli [E. coli] as the cause of diseas - Obesity, unspecified - Diseases of the digestive system complicating the puerperium - Appendicular concretions 09/24/2019 09:49 [facility] [place] [facility]: [facility] COMPLAINT: - REPEAT C SECTION DIAGNOSES: - Gestational diabetes mellitus in childbirth, unspecified cont - Other specified noninflammatory disorders of uterus - Other specified noninflammatory disorders of uterus - Single live - Maternal care for low transverse scar from previous - Maternal care for unspecified type scar from previous cesarea - 39 weeks gestation of [email or web address]
== END 2020-02-11 14:26 | disposition home or self-care (01) ==
LOC: ED 13:48
DX: B34.9 Viral infection, unspecified (principal); J40 Bronchitis, not specified as acute or chronic
CPT/HCPCS: 99283

== ENCOUNTER 2020-05-22 15:11 | Emergency (ER) | payer OTHER ==
[~2020-05-22] VITALS: Ht 162.6 cm; Wt 81.7 kg
--- OUTSIDE RECORDS SUMMARY | 2020-05-22 15:14 | XMS ---
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 Geovanni has no Care Guidelines for this patient. Jair VISIT COUNT (12 MO.) 3 ANNABEL Jett TOTAL 3 NOTE: Visits indicate total known visits. ED/C VISIT TRACKING (12 MO.) 05/22/2020 15:13 [facility] [place] TYPE: Emergency COMPLAINT: - DIZZYNESS, NAUSEA, HEADACHE 02/11/2020 13:49 [facility] [place] TYPE: Emergency COMPLAINT: - COLD SYMPTOMS DIAGNOSES: - Cough - Viral infection, unspecified - Bronchitis, not specified as acute or chronic 10/11/2019 20:42 [facility] [place] TYPE: Emergency [...] concretions 09/24/2019 09:49 [facility] [place] TYPE: [facility] COMPLAINT: - REPEAT C SECTION DIAGNOSES: - Gestational diabetes mellitus in childbirth, unspecified cont - Other specified noninflammatory disorders of uterus - Other specified noninflammatory disorders of uterus - Single live - Maternal care for low transverse scar from previous - Maternal care for unspecified type scar from previous cesarea - 39 weeks gestation of [email or web address]
== END 2020-05-22 17:08 | disposition home or self-care (01) ==
LOC: ED 15:11
DX: R06.02 Shortness of breath (principal); Z20.828 Contact with and (suspected) exposure to other viral communicable diseases
CPT/HCPCS: 71045; 99284-25

== ENCOUNTER 2022-08-02 19:16 | Emergency (ER) | payer OTHER ==
[~2022-08-02] VITALS: Ht 162.6 cm; Wt 93.9 kg
[2022-08-02] MEDS ORDERED: PRENATAL TABLE1 EAC3 PO (20:48)
[2022-08-02] MEDS ORDERED: CEPHALEXIN500 MG PO (20:49)
== END 2022-08-02 23:33 | disposition home or self-care (01) ==
LOC: ED 19:16
DX: O98.511 Other viral diseases complicating pregnancy, first trimester (principal); U07.1 COVID-19; O99.891 Other specified diseases and conditions complicating pregnancy; R10.9 Unspecified abdominal pain; Z3A.10 10 weeks gestation of pregnancy
CPT/HCPCS: 36415; 76801; 76817; 80053; 81001; 83735; 84702; 85025; 87502; 99284-25; U0003